=== PATIENT | female | born 1945 | race Caucasian/White ===

== ENCOUNTER 2018-03-22 07:35 | Outpatient (CLI) | payer MEDICARE, BC ==
[~2018-03-22] VITALS: Ht 162.6 cm; Wt 94.1 kg
--- NOTE | ~2018-03-22 | HEMODYNAMI ---
PATIENT:ADRYAN BENNETT MEDICAL RECORD: [id number] : 49 LOCATION:[facility] ADMISSION DATE: 03/22/18 Generatedon:03/22/201810:20 Patient name: ADRYAN BENNETT Patient #: [id number] SSN: DO B: 1945 Date of study: 03/22/2018 Page: Of Hemodynamic Procedure Report Patient Data Patient Demographics Procedure consent was obtained First Name: ADRYAN Gender: Female Last Name: DONALD : 1945 Patient #: [id number] Age: 73 year(s) Race: Unknown Additional ID: [id number] Contact details Address: [place] [address] State: [place] City: [place] Zip code: [address] Admission Admission Data Admission Date: 03/22/2018 Admission Time: 7:35 Admit Source: Other Procedure Procedure Types Cath Procedure Diagnostic Procedure LHC LHC w/Coronaries Procedure Description Procedure Date Procedure Date: 03/22/2018 Procedure Start Time: 10:08 Procedure End Time: 10:19 Procedure Staff Name Function Juni Bobby MD Performing Physician Eliezer Webber RT Monitor Aldo Meneses RT Scrub Emerson Bustos RN Nurse Procedure Data Cath Procedure Fluoroscopy Diagnostic fluoroscopy Total fluoroscopy Time: 1 time: 1 min min Diagnostic fluoroscopy Total fluoroscopy dose: 150 dose: 150 mGy mGy Contrast Material Contrast Material Type Amount (ml) Isovue 300 40 Entry Location Entry Primary Successful Side Size Upsize Upsize Entry Closure Meyer ccessful Closure Location (Fr) 1 (Fr) 2 (Fr) Remarks Device Remarks Radial Right 6 Fr Mechanical artery Short Compression Estimated blood loss: 10 ml Diagnostic catheters Device Type Used For End Catheter Placement DIAGNOSTIC [place] 110cm 5 Procedure Fr catheter ([id number]) Procedure Complications No complications Procedure Medications Medication Administration Route Dosage Oxygen etCO2 Nasal cannula 2 l/min Heparin Flush Bag added to field 2 bags (1000units/500ml NS) 0.9% NaCl I.V. 100 ml/hr Radial Cocktail added to field 1 syringe (Verapomil 2mg/Nitro 400mcg/Heparin 1500units) Fentanyl I.V. 50 mcg Versed I.V. 1 mg Fentanyl I.V. 50 mcg Versed I.V. 1 mg Radial Cocktail I.A. 1 syringe (Verapomil 2mg/Nitro 400mcg/Heparin 1500units) Fentanyl I.V. 50 mcg Hemodynamics Rest Heart Rate: 53 (bpm) Pressure Samples Time Site Value (mmHg) Purpose Heart Use Rate(bpm) 10:14 AO 100/59(77) Snapshot 61 Snapshots Pre Cath Intra NCS Post Cath Vital Signs Time Heart Resp SPO2 etCO2 NIBP (mmHg) Rhythm Pain Sedation Rate (ipm) (%) (mmHg) Status Level (bpm) 9:52:54 53 17 97 36 156/82(126) NSR 0 (11) 10(A) , No pain 9:57:07 56 18 96 18.8 133/77(94) NSR 0 (11) 10(A) , No pain 10:01:25 58 17 92 9 129/73(97) NSR 0 (11) 10(A) , No pain 10:05:43 57 17 94 12 123/68(92) NSR 0 (11) 10(A) , No pain 10:10:00 57 17 91 15.8 122/73(93) NSR 0 (11) 9(A) , No pain 10:14:11 63 16 93 31.5 107/64(86) NSR 0 (11) 9(A) , No pain 10:18:25 60 17 91 35.3 118/60(86) NSR 0 (11) 9(A) , No pain Medications Time Medication Route Dose Verified Delivered Reason Notes Effectiveness by by 9:51:59 Oxygen etCO2 2 l/min Juni Norman Per Nasal Kanu Bustos RN physician cannula 9:52:07 Heparin Flush added 2 bags Juni Norman used for Bag to Kanu Bustos RN procedure (1000units/500ml field NS) 9:52:17 0.9% NaCl I.V. 100 Juni Norman Per ml/hr Kanu Bustos RN physician 9:52:27 Radial Cocktail added 1 Juni Norman used for (Verapomil to syringe Kanu Bustos RN procedure 2mg/Nitro field 400mcg/Heparin 1500units) 10:07:30 Fentanyl I.V. 50 mcg Juni Norman for sedation Kanu Bustos RN 10:07:37 Versed I.V. 1 mg Juni Norman for sedation Kanu Bustos RN 10:10:36 Fentanyl I.V. 50 mcg Juni Norman for sedation Kanu Bustos RN 10:10:41 Versed I.V. 1 mg Juni Norman for sedation Kanu Bustos RN 10:11:08 Radial Cocktail I.A. 1 Juni Alfredo for (Verapomil syringe Kanu Bobby MD vasodilation 2mg/Nitro 400mcg/Heparin 1500units) 10:13:24 Fentanyl I.V. 50 mcg Juni Alfredo for sedation Kanu Bobby MD Procedure Log Time Note 9:18:15 Informed consent obtained and on chart 9:18:19 Admit Source: Other 9:18:49 Diagnostic Cath status Elective 9:18:51 Time tracking: Regular hours (M-F 7:00 - 5:00) 9:18:55 Plan of Care:Hemodynamics will remain stable., Cardiac rhythm will remain stable., Comfort level will be maintained., Respiratory function will remain adequate., Patient/ family verbilizes understanding of procedure., Procedure tolerated without complication., Recovers from procedure without complications.. 9:25:52 Eliezer IMCHELLE(R) sent for patient. Start room use. 9:40:14 Patient received from Pre/Post Procedure Room to CCL 3 Alert and oriented. Tansferred to table in Supine position. 9:40:15 Warm blankets applied, and noreen hugger turned on for patient comfort. 9:40:15 Correct patient and procedure confirmed by team. 9:40:15 ECG and BP/O2 sat monitors applied to patient. 9:40:24 H&P Date Dictated: 03/16/2018 Within 30 days and on chart., H&P Addendum completed by physician on day of procedure. (MUST COMPLETE FOR ALL OUTPATIENTS). 9:51:28 Vital chart was started 9:51:59 Oxygen 2 l/min etCO2 Nasal cannula was administered by Emerson Bustos RN; Per physician; 9:52:07 Heparin Flush Bag (1000units/500ml NS) 2 bags added to field was administered by Emerson Bustos RN; used for procedure; 9:52:17 0.9% NaCl 100 ml/hr I.V. was administered by Emerson Bustos RN; Per physician; 9:52:27 Radial Cocktail (Verapomil 2mg/Nitro 400mcg/Heparin 1500units) 1 syringe added to field was administered by Emerson Bustos RN; used for procedure; 9:53:25 Baseline sample Acquired. 9:53:32 Rhythm: sinus bradycardia 9:53:34 Full Disclosure recording started 9:53:35 Pre-procedure instructions explained to patient. 9:53:36 Pre-op teaching completed and patient verbalized understanding. 9:53:38 Family in waiting room. 9:53:39 Patient NPO since Midnight. 9:53:40 Is the patient allergic to Iodine/contrast media? No. 9:53:41 Is patient on blood thinner?No 9:53:44 Patient diabetic? Yes. 9:53:47 If diabetic: On Metformin? No 9:53:52 Patient not . Patient is over age 55. 9:53:54 Previous problem with sedation/anesthesia? No ? 9:53:55 Snore? Yes 9:53:56 Sleep apnea? No 9:53:57 Deviated septum? No 9:53:58 Opens mouth fully? Yes 9:53:58 Sticks out tongue? Yes 9:54:01 Airway obstruction? No ? 9:54:08 Dentures? No ? 9:54:11 Pre procedure: right dorsailis pedis pulse 1+ Palpable, but thready & weak; easily obliterated 9:54:14 Modified Jamar's test Ulnar < 7 seconds 9:54:15 Patient pain scale 0/10 ?. 9:54:22 IV patent on arrival in right forearm with 0.9% NaCl at O. 9:54:23 Lab results completed and on chart. 9:54:26 Right Radial & Right Groin area was prepped with chlora-prep and draped in sterile fashion 9:54:28 Alarms reviewed by R. N. 9:54:28 Sharps counted by scrub and verified by R.N. 9:54:34 Use device set Radial Dx or PCI 9:54:37 Tegaderm 4 x 4 (1626W) opened to sterile field. 9:54:38 ACIST Manifold (70100) opened to sterile field. 9:54:39 ACIST Hand Control (37348) opened to sterile field. 9:54:40 Bag Decanter (2002S) opened to sterile field. 9:54:41 Medline Cath Pack ([id number]) opened to sterile field. 9:54:42 ACIST Syringe (94103) opened to sterile field. 9:54:43 DIAGNOSTIC WIRE .035 260cm J wire (822321) opened to sterile field. 9:54:43 MBrace Wrist Support ([id number]) opened to sterile field. 9:54:44 SHEATH 6Fr Prelude Radial ([id number]) opened to sterile field. 10:04:42 --------ALL STOP TIME OUT------ 10:04:42 Final Timeout: patient, procedure, and site verified with staff and physician. All members of the team are in agreement. 10:04:45 Right Radial & Right Groin site verified by team. 10:04:47 Physical assessment completed. ASA score P 2 - A patient with mild systemic disease as per Juni Bobby MD. 10:04:50 Sedation plan: IV Moderate Sedation Medication:Versed, Fentanyl 10:07:30 Fentanyl 50 mcg I.V. was administered by Emerson Bustos RN; for sedation; 10:07:37 Versed 1 mg I.V. was administered by Emerson Bustos RN; for sedation; 10:08:39 Procedure started. 10:08:43 Local anesthetic to right radial artery with Lidocaine 2% by Juni Bobby MD.INITIAL ACCESS ONLY 10:09:21 A 6 Fr Short sheath was inserted into the Right Radial artery 10:10:36 Fentanyl 50 mcg I.V. was administered by Emerson Bustos RN; for sedation; 10:10:38 A DIAGNOSTIC [place] 110cm 5 Fr catheter ([id number]) was advanced over the wire and used for Procedure. 10:10:41 Versed 1 mg I.V. was administered by Emerson Bustos RN; for sedation; 10:11:08 Radial Cocktail (Verapomil 2mg/Nitro 400mcg/Heparin 1500units) 1 syringe I.A. was administered by Juni Bobby MD; for vasodilation; 10:13:18 GLIDE WIRE ANGLE 260cm (HP7332) opened to sterile field. 10:13:24 Fentanyl 50 mcg I.V. was administered by Juni Bobby MD; for sedation; 10:13:48 [place] wire used to advance catheter. 10:14:05 LV angiography performed. 10:14:07 LV gram done using SOLARES 10:14:14 EF : 60 % 10:14:27 Injector settings: Ml/sec: 7, Volume: 15, 10:15:01 LCA angiography performed. 10:15:19 RCA angiography performed. 10:15:26 Catheter removed. 10:15:36 TR BAND Standard ([id number]) opened to sterile field. 10:15:53 Sheath removed intact; hemostasis achieved with Mechanical Compression to the Right Radial artery. 10:15:55 Procedure ended.(Physican Out) 10:17:41 Fluoroscopy time 01.00 minutes. 10:17:51 Fluoroscopy dose: 150 mGy 10:17:51 Flurop Dose total: 150 10:17:56 Contrast amount:Isovue 300 40ml. 10:17:57 Sharps counted by scrub and verified by R.N. 10:18:02 Insertion/operative site no bleeding no hematoma. 10:18:06 Post-op/insertion site Right Femoral artery dressed using a 4 x 4 and Tegaderm. 10:18:07 Post Procedure Pulses reassessed and unchanged 10:18:10 Post-procedure physical assessment completed. ASA score P 2 - A patient with mild systemic disease as per Juni Bobby MD. 10:18:13 Post procedure rhythm: unchanged. 10:18:40 Estimated blood loss: 10 ml 10:18:42 Post procedure instruction explained to patient.Patient verbalizes understanding. 10:18:42 Patient needs reinforcement of post procedure teaching. 10:18:52 Procedure Complication : No complications 10:19:18 Procedure and supply charges have been captured, reviewed, submitted and are correct. 10:19:27 Vital chart was stopped 10:19:28 See physician's report for complete and final results. 10:19:30 Report given to Pre/Post Procedure Room. 10:19:35 Patient transfered to Pre/Post Procedure Room with Stretcher. 10:19:37 Procedure ended. 10:19:37 Full Disclosure recording stopped 10:19:42 End room use (Document Last) Device Usage Item Name Manufacture Quantity Catalog Number Hospital Part Current M inimal Lot# / Charge Number Stock Stock Serial# Code Tegaderm 4 x 4 3M 1 [id number] [id number] 230028 5 (1626W) ACIST Manifold Acist 1 65835 833393 177206 097379 5 (65115) [employer] ACIST Hand Acist 1 04951 650654 957879 307481 5 Control (78568) [employer] Bag Decanter Microtek 1 2002S 039418 40079 080119 5 (2001S) Medical Inc. Medline Cath Cardinal 1 [id number] 502529 21660 670982 5 Pack Health ([id number]) ACIST Syringe Acist 1 47268 302640 298848 065585 2 0 (48418) [employer] DIAGNOSTIC WIRE St [place] 1 185578 596175 950268 166474 3 0 .035 260cm J wire (925826) MBrace Wrist Advanced 1 140-0250-00 837764 68853 793907 5 Support Vascular ([id number]) Dynamics SHEATH 6Fr Merit 1 [id number] 817608 064407 861965 5 Prelude Radial Medical ([id number]) DIAGNOSTIC Terumo 1 40-6991 375559 438726 529820 5 [place] 110cm 5 Fr catheter (306689) GLIDE WIRE Terumo 1 DY9653 120984 150804 432956 5 ANGLE 260cm (JF7193) TR BAND Terumo 1 [id number] 656593 162778 628422 4 0 Standard ([id number]) Signature Audit [place] Stage Time Signature Unsigned Intra-Procedure 03/22/2018 Eliezer Webber 10:20:09 AM RT(R) Signatures Monitor : Eliezer Webber RT Signature : Date : Time : [facility] [address] [place] [address]
--- NOTE | ~2018-03-22 | OP ---
PATIENT NAME: ADRYAN BENNETT MEDICAL RECORD: [id number] :49 LOCATION:D.CAT ADMISSION DATE: SURGEON: HIEU PANDA MD DATE OF OPERATION: 03/22/2018 PROCEDURES: 1. Left heart catheterization. 2. Selective coronary angiography. 3. Left ventriculogram. INDICATION: Chest pain compatible with angina. PROCEDURE IN DETAIL: After informed consent was obtained and after a detailed description of the risks, benefits as well as alternative therapies, the patient elected to proceed with angiogram and heart catheterization. The right radial area was prepped and draped in normal sterile fashion. Right radial artery was cannulated via modified Seldinger technique with placement of 5-[place]amo[place] sheath. All catheters exchanged through this sheath. FINDINGS: Left ventriculogram was performed in standard 30-degree SOLARES view, reveals good cardiac wall motion throughout all segments. Overall ejection fraction estimated 60%. SELECTIVE CORONARY ANGIOGRAPHY: Left main, left anterior descending, left circumflex, right coronary artery are all smooth-walled vessels with no angiographic evidence of coronary artery disease. OVERALL IMPRESSION: 1. No angiographic evidence of coronary artery disease. 2. Normal left heart pressures. 3. Normal left ventricular systolic function. Chest pain is noncardiac in etiology. No further cardiac workup needs to be ascertained. TRANSINT:[id number] Voice Confirmation ID: [id number] DOCUMENT ID: [id number] HIEU PANDA MD at 1806 CC: [id number] DICTATION DATE: 03/22/18 1018 [place] OPERATOR: 03/22/18 1230 DEP CLI 03/22/18 [address] [place] [address]
[2018-03-22] MEDS ORDERED: GLUCOTROL 5 MG T5 MG PO (08:05)
[2018-03-22] MEDS ORDERED: HCTZ25 MG PO (08:05)
[2018-03-22] MEDS ORDERED: COREG6.25 MG PO (08:06)
[2018-03-22] MEDS ORDERED: LISINOPRIL5 MG PO (08:06)
[2018-03-22] MEDS ORDERED: GABAPENTIN100 MG PO (08:07)
[2018-03-22] MEDS ORDERED: K-DUR20 MEQ PO (08:07)
[2018-03-22 08:23] VITALS: BP 136/69; Ht 162.6 cm; Wt 94.1 kg
[2018-03-22 08:45] LABS: BASOPHILS 0.3 % (0-2); EOSINOPHILS 1.2 % (0-7); HEMOGLOBIN 13.1 g/dL (12-16); IMMATURE GRANULOCYTES 0.2 % (0-5); MCH 30.2 pg (26.0-34.0); MCHC 34.5 g/dL (31.0-37.0); MCV 87.6 fL (80.0-100.0); MEAN PLATELET VOLUME 9.6 fL (7.4-10.4); MONOCYTES 4.9 % (2-11); NEUTROPHILS 57.4 % (40-80); PLATELET COUNT 172 10x3/uL (130-400); RBC 4.34 10x6/uL (4.00-5.40); WBC 5.8 10x3/uL (4.8-10.8)
[2018-03-22 08:53] LABS: CALC OSMOLALITY 281 mosm/kg (275-300); CALCIUM 8.3 mg/dL (8.5-10.1); CARBON DIOXIDE 27.5 mmol/L (21.0-32.0); CHLORIDE - SERUM 106 mmol/L (98-107); CREATININE - SERUM 0.6 mg/dL (0.6-1.3); GLUCOSE 118 mg/dL (74-106); POTASSIUM - SERUM 4.1 mmol/L (3.5-5.1); SODIUM 140 mmol/L (136-145); UREA NITROGEN 19 mg/dL (7-18); eGFR NON AFRICAN AMERICAN > 90 mL/min (90-120)
== END 2018-03-22 12:48 ==
LOC: D.CATH 07:35
PROVIDERS: Internal Medicine Interventional Cardiology
DX: R07.89 Other chest pain (principal); Z01.812 Encounter for preprocedural laboratory examination